=== PATIENT | female | born 2000 | race Caucasian/White ===

== ENCOUNTER 2022-12-11 20:33 | Outpatient (CLI) | payer BC ==
[~2022-12-11] VITALS: Ht 152.4 cm; Wt 56.8 kg
[~2022-12-11 20:33] MED LIST: PRENATAL VITAMI1 T12 PO
[2022-12-11 21:00] VITALS: BP 118/87; PULSE 96; TEMP 98
[2022-12-11 21:30] VITALS: BP 111/73; PULSE 89
[2022-12-11 22:00] VITALS: BP 114/83; PULSE 93
[2022-12-11 22:30] VITALS: BP 113/81; PULSE 93
--- NOTE | 2022-12-11 22:30 | NUR ---
2202-DR CALI IN ROOM TO EVALUATE PT. DR. CALI STATES UNCHANGED FROM PREVIOUS EXAM. DISCUSSES STARTING THERAPEUTIC REST WITH THE USE OR IM MORPHINE, IM PHENERGAN, AND IVF. PT VERBALIZES UNDERSTANDING AND AGREES TO THERAPEUTIC REST. 2220- THIS NURSE ATTEMPTS TO START IV BUT UNSUCCESSFUL X2. DR. CALI REQUESTS THAT IM PHENERGAN AND MORPHINE BE GIVEN NOW. SULFUR CHLORIDE OPERATOR WILL BRING IM MORPHINE SHORTLY. IM PHENERGAM GIVEN BY THIS NURSE IN LEFT DELTOID. Josiane FITZGERALD RN IN ROOM TO ATTEMPT IV START.
--- NOTE | 2022-12-11 22:59 | NUR ---
DR. CALI IN ROOM, SVE PERFORMED, UNCHANGED. DR. CALI STATES THAT IF CTX BECOME LESS CONSISTENT, PT NO LONGER IN PAIN, SVE REMAINS AND UNCHANGED AND REASSURING FHT'S THE PT MAY DC HOME IF DESIRES. IF SHE WOULD PREFER TO STAY UNTIL MORNING TO GET SOME REST WE NEED TO GET A DISCHARGE ORDER FROM DR. PANDA AT THAT TIME.
[2022-12-11 23:00] VITALS: BP 111/74; PULSE 81
[2022-12-11 23:30] VITALS: BP 110/72; PULSE 85
[2022-12-12] VITALS (15 sets, daily range): BP systolic 99–117; BP diastolic 55–78; PULSE 75–99
--- NOTE | 2022-12-12 03:30 | NUR ---
at nurses station and reviews FHR strip. No new orders at this time.
--- NOTE | 2022-12-12 07:25 | NUR ---
Discharge instructions and follow up care reviewed with pt and . Both verbalized an understanding and reports she has an appointment for this afternoon in clinic.
== END 2022-12-12 07:25 | disposition home or self-care (01) ==
LOC: LDRO 20:33
DX: Z34.90 Encounter for supervision of normal pregnancy, unspecified, unspecified trimester (principal); Z3A.00 Weeks of gestation of pregnancy not specified
CPT/HCPCS: J2270; J2550; J7120

== ENCOUNTER 2022-12-14 15:49 | Outpatient (CLI) | payer BC ==
[~2022-12-14] VITALS: Ht 152.4 cm; Wt 58.2 kg
--- NOTE | 2022-12-14 16:05 | NUR ---
DR LOPEZ NOTIFIED OF PT BEING ON UNIT
[2022-12-14 16:30] VITALS: BP 126/80; PULSE 86; TEMP 97.5
[2022-12-14 17:00] VITALS: BP 114/74; PULSE 86
[2022-12-14 17:30] VITALS: BP 106/73; PULSE 89
[2022-12-14 17:54] VITALS: BP 102/71; PULSE 96
== END 2022-12-14 18:04 | disposition home or self-care (01) ==
LOC: LDRO 15:49
DX: O62.9 Abnormality of forces of labor, unspecified (principal); Z3A.37 37 weeks gestation of pregnancy

== ENCOUNTER 2022-12-26 13:51 | Inpatient (IN) | payer BC ==
[~2022-12-26] VITALS: Ht 152.4 cm; Wt 59.1 kg
[2023-01-02] VITALS (30 sets, daily range): BP systolic 100–140; BP diastolic 54–89; PULSE 75–126; TEMP 97.5–98.3
--- NOTE | 2023-01-02 06:15 | NUR ---
Patient ambulatory to unit with spouse, Paul. Patient oriented to labor room 5 and assisted into a gown. Patient denies leaking of fluid or vaginal bleeding, reports having irregular contractions since 36 weeks and good movement. Patient educated on plan of care, consents explained and signed, and assessments complete.
[2023-01-02 07:51] LABS: BASO # 0.1 K/mm3 (0.0-0.2); BASO % 0.4 % (0.0-2.0); EOS # 0.2 K/mm3 (0.0-0.7); EOS % 1.1 % (0.0-4.0); GRAN # 10.6 K/mm3 (1.4-6.5); GRAN % 75.9 % (42.2-75.2); HEMOGLOBIN 13.3 g/dl (12.5-16.0); LYMPH % 14.5 % (20.0-51.0); MEAN CELL VOLUME 92 fl (80.0-100.0); MEAN CORPUSCULAR HEMOGLOBIN 30 pg (27-31); MEAN CORPUSCULAR HGB CONC 33 g/dl (33.0-37.0); MEAN PLATELET VOLUME 10.8 fl (7.4-10.4); MONO # 0.9 K/mm3 (0.1-0.6); MONO % 6.7 % (1.7-9.3); PLATELET COUNT 184 K/mm3 (130-400); RED BLOOD COUNT 4.37 M/mm3 (4.10-5.30); REDCELL DISTRIBUTION WIDTH-CV 13.7 % (11.5-14.5)
--- NOTE | 2023-01-02 08:04 | NUR ---
in patients room for AROM. SVE . AROM at this time, small amount of odorless, clear fluid noted on towel. This RN educates patient on continued leaking of fluid until delivery and educates patient on importance of position changes in labor. Patient verbalizes understanding and does not have further questions at this time.
--- NOTE | 2023-01-02 09:50 | NUR ---
0943- THIS RN AT BEDSIDE FOR POSITION CHANGE. RIGHT LYING HIP RELEASE AT THIS TIME. 0947- LEFT LYING HIP RELEASE PERFORMED AT THIS TIME. 0949- PATIENT REPOSITIONED TO WEDGE RIGHT. 0950- SVE . PATIENT BREATHING THROUGH CONTRACTIONS.
--- NOTE | 2023-01-02 10:20 | NUR ---
1005- STADOL GIVEN, SEE eMAR. 1008- PATIENT REPORTS FEELING DIZZY AND "WEIRD." THIS RN REMAINS AT BEDSIDE 1010- PATIENT REPORTS FEELING BETTER AND NOT DIZZY. 1016- TACHYSYSTOLE NOTED ON THE TOCO MONITOR. PITOCIN TURNED DOWN TO 4mU. 1020- SVE AT THIS TIME DUE TO PATIENT REPORTING PRESSURE AND FEELING LIKE PUSHING WITH CONTRACTIONS. SVE 7-8/95/+1. PHYSICIAN NOTIFIED VIA OFFICE NURSE OF CHANGE IN STATUS, SEE PHYSICIAN NOTIFICATION.
--- NOTE | 2023-01-02 12:13 | NUR ---
1125- PATIENT REQUESTING TO GO TO RESTROOM. PATIENT REPORTS THE MEDICATION IS WEARING OFF AND SHE IS VERY UNCOMFORTABLE. 1135- PATIENT RETURNS FROM RESTROOM, SVE AT THIS TIME /+1. RN REMAINS AT BEDSIDE TO SUPPORT PATIENT THROUGH TRANSITION. 1155- PATIENT REPORTING INCREASED PRESSURE AND FEELING LIKE PUSHING, SVE /+1. RN ASSISTS THROUGH CONTRACTIONS WITH BACK MASSAGE. 1158- NOTIFIED OF QUICK PROGRESSION. 1205- CALLED FOR HANSELY. 1210- IN ROOM FOR FIORDALIZA. PATIENT BECOMES INCREASINGLY UNCOMFORTABLE AND REPORTS BEING UNABLE TO CONTROL HER BODY. THIS RN COACHES PATIENT TO BREATHE THROUGH THESE LAST FEW CONTRACTIONS. PATIENT CALMS DOWN SLIGHTLY, BUT BECOMES MORE TENSE PUUSHING STARTS. PATIENT FURTHER INSTRUCTED TO BREATHE SLOWER AND CONTROL HER BREATHING AND THAT HER BABY IS ALMOST HERE. 1213- SPONTANEOUS DELIVERY OF INFANT HEAD AND BODY AT THIS TIME. 1218- SPONTANEOUS DELIVERY OF PLACENTA A T THIS TIME. PITOCIN STARTED AT 333mU ORDERED AND PER PROTOCOL.
--- NOTE | 2023-01-02 14:45 | NUR ---
1400- PATIENT REQUESTS TO GET OUT OF BED TO GO WATCH INFANTS FIRST BATH. THIS RN AT BEDSIDE TO ASSIST PATIENT UP. PATIENT SITS ON SIDE OF THE BED AND ASSISTED INTO A NEW GOWN AND SOCKS. PATIENT STANDS INDEPENDENTLY AT BEDSIDE AND REPORTS FEELING GOOD. PATIENT DOES NOT DESIRE TO USE REST ROOM AT THIS TIME. PATIENT AMBULATRES STEADILY TO THE NURSERY FOR BATH. 1415- PATIENT IS IN NURSERY AND REQUESTS A CHAIR, CHAIR PROVIDED AND PATIENT ASSISTED TO SIT. 1445- PATIENT AMBULATES INDEPENDENTLY TO ROOM WITH HELP OF UNIT TECH. PATIENT VOIDS THEN IS ORIENTED TO ROOM. PATIENT GET COMFORTABLE IN BED AND WAITS FOR TO BE BROUGHT TO THE ROOM FROM THE NURSERY RN.
[2023-01-03 03:00] VITALS: BP 109/70; PULSE 78; TEMP 98.5
[2023-01-03 08:40] VITALS: BP 104/66; PULSE 79; TEMP 97.7
--- NOTE | 2023-01-03 13:41 | NUR ---
DISCHARGE INSTRUCTIONS COMPLETED. DISCUSSED NEED TO MAKE 6 WEEK FOLLOW UP APPOINTMENT THERE IS NOT ONE IN OUR COMPUTER. PATIENT REPORTS SHE HAS ONE SCHEDULED WITH HARRISON BULLOCK. HEALTH SUMMARY GIVEN. QUESTIONS INVITED AND ANSWERED
== END 2023-01-03 13:53 | disposition home or self-care (01) | DRG 807 ==
LOC: LDR 01-02 06:06 → OB 01-02 13:49
PROVIDERS: ADMIT Obstetrics & Gynecology
PROC: 10E0XZZ Delivery of Products of Conception, External Approach (ICD-10-PCS; principal; 2023-01-02)
PROC: 0HQ9XZZ Repair Perineum Skin, External Approach (ICD-10-PCS; 2023-01-02)
PROC: 3E033VJ Introduction of Other Hormone into Peripheral Vein, Percutaneous Approach (ICD-10-PCS; 2023-01-02)
DX: O48.0 Post-term pregnancy (principal); Z37.0 Single live birth; Z3A.40 40 weeks gestation of pregnancy; O99.344 Other mental disorders complicating childbirth; F41.9 Anxiety disorder, unspecified; O99.02 Anemia complicating childbirth; D64.9 Anemia, unspecified; O43.893 Other placental disorders, third trimester; O70.9 Perineal laceration during delivery, unspecified; O69.81X0 Labor and delivery complicated by cord around neck, without compression, not applicable or unspecified
CPT/HCPCS: J0595; J2590; J7120